=== PATIENT | male | born 1945 | race Caucasian/White ===

== ENCOUNTER 2022-10-01 08:45 | Outpatient (RCR) | payer OTHER, SELFPAY ==
--- NOTE | 2022-10-01 10:58 | HP.PTEVAL_ITS ---
Patient's Visit Information SRIKANTH ZAMORANO is a 77 year old M referred to Physical Therapy by Dr. Elías Hawley DO with a diagnosis of B knee OA. Date of Evaluation: 10/01/22 Physical Therapist: Didier Lovelace DPT - Visit Plan Frequency: 1x/Week Duration: 6 Weeks Plan: I gave Srikanth new LE strengthening and ROM exercises. He is to add this to his program. Pt. is to do so for a few weeks and come back to determine progression. - Subjective Pt. is here today for his initial evaluation with diagnosis of B knee OA. R worse than L. Pt. has had cortizone and gel injections with some mild relief. Pt. reports having increased stiffness and pain at times, but not all the time. Patient does go to a gym x2 days per week doing 4-5 machines. 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 He is able to sleep without much issue. Pt. denies N/T in either LE. He has started using voltarin gel with good tolerance. Pt. is able to walk without much issues, most of the time. He is hopeful to reduce symptoms in order to get back to all recreational activities without limitations. - Pain R knee Pain Intensity (Out of 10): 1 Pain Intensity Range: 0, 5 L knee Pain Intensity (Out of 10): 0 Pain Intensity Range: 0, 4 - Objective POSTURE: Pt. has marked genur varum on the R, and genu valgus on the L in stance. Worse in SLS. PALPAITON: Pt. has minimal to no tenderness to palpation of either LE. NEURO: Normal sensation and DTR of BLEs. ROM: R knee: AROM: 0-5-121deg. PROM: 0-2-125deg. L knee: AROM: 0-0-118deg. PROM: 0-0-121deg. Pt. has slight tightness in B HS but minimal and has some hip flexor tightness bilaterally as well. MMT: R knee: ext 45.5#, flexion 31.7#; L knee: ext 39.5#, flex 26.4#. Hip abd 16.7# on R, 14.9# on L. GAIT: pt. has increased respective genu valgum and varum during stance phase of gait, B decreased step length. No increase in pain with stance phase of gait. - Balance/Special Test Scores Lower Extremity Functional Score: 47 - Goals Goal 1:: LTG: Pt. to be I with HEP for gym. Goal Time Frame: 4-6 Weeks Goal 2:: LTG: pt. to be able to complete all ADLs and IADLs without increase in symptoms. Goal Time Frame: 4-6 Weeks Goal 3:: LTG: Pt. to have improved HS and hip flexor length to normal. Goal Time Frame: 4-6 Weeks Goal 4:: LTG: pt. to have increased BLE strength increased by 5# throughout BLEs. - Rehabilitation Potential Physical Therapy Diagnosis: Pt. has signs and symptoms consistent with B knee OA. Pt. has actually decent ROM and decent strength. He is active in at his gym and desires some more exercises and guidance for what he should be doing at the gym. Rehabilitation Potential: Excellent - Anticipated Interventions Patient/Client Instruction: Educate patient on: Condition, Plan of Care, Risk Factors, Benefits of Fitness Program For the Purpose of:: To foster healthy habits, To improve decision making, To facilitate caregiver knowledge, To improve self management, To prevent re- injury, To improve ability to perform tasks related to life management Therapeutic Exercise to Include: Strength training, Power training, Postural training, Flexibilty training, Passive ROM, Active ROM For the Purpose of:: To decrease pain, To increase ROM, To improve nutrient delivery to tissue, To increase oxygenation perfusion, To improve muscle performance and motor function, To improve health of tissue, To decrease soft tissue restriction, To increase flexibility/ROM Manual Therapy Techniques to Include: Mobilization, Passive ROM For the Purpose of:: To facilitate caregiver knowledge, To improve self management, To prevent re-injury, To improve ability to perform tasks related to life management Thank you for the opportunity to evaluate your patient. For Medicare and Medicare HMO plans, please review the plan of care and approve it. It will need to be FAXED BACK to us at [phone] for Medicare purposes. For Medicare only, by signing this I certify the plan of care. Please let me know if there are questions or concerns regarding this plan of care. Physician Signature: Date:
== END 2022-10-01 19:00 | disposition home or self-care (01) ==
LOC: PT 08:45
PROVIDERS: PCP Family Medicine; Referring Provider Orthopaedic Surgery; Visit Provider Orthopaedic Surgery
DX: M17.0 Bilateral primary osteoarthritis of knee (principal)
CPT/HCPCS: 97161

== ENCOUNTER → 2023-06-09 | Outpatient (CLI) | payer BC, SELFPAY ==
--- NOTE | 2023-06-09 14:50 | CT_ITS ---
CT RIGHT LOWER EXTREMITY WITH 3-D IMAGING CLINICAL INDICATION: BILATERAL POST TRAUMATIC OSTEOARTHRITIS OF KNEE TECHNIQUE: Axial CT images of the right lower extremity was performed without IV contrast material. Coronal and sagittal reformats were provided. RADIATION DOSAGE (If Supplied By Facility): CTDIvol = ( 20.10 ) mGy, DLP = ( 1415.75 ) mGycm COMPARISON: Right knee radiographs dated 07/11/2022. FINDINGS: Bones: There is mild degenerative arthrosis of the right hip joint with mild joint space narrowing and tiny marginal osteophyte formation. There is tricompartment degenerative arthrosis of the right knee with joint space narrowing and marginal osteophyte formation, most pronounced in the medial femorotibial compartment. There is severe degenerative arthrosis at the tibiotalar joint with severe joint space narrowing, marginal osteophyte formation, subchondral cyst, and adjacent osseous fragmentation. Osseous structures are intact without evidence of fracture or dislocation. No lytic or blastic osseous masses. Soft Tissues: There is mild chondrocalcinosis of the right acetabular labrum. There is mild chondrocalcinosis of the medial and lateral menisci of the right knee. There is a small right knee joint effusion. The deep soft tissue structures are unremarkable. The superficial soft tissues are unremarkable without evidence of edema, hematoma, or foreign body. CT/Extremity Lower without Contra IMPRESSION: Tricompartment degenerative arthrosis of the right knee, most pronounced in the medial femorotibial compartment. Small right knee joint effusion. Electronically Signed: Jeffery Tompkins MD at 8:59 EST ,
== END | disposition home or self-care (01) ==
LOC: CT 14:41
PROVIDERS: PCP Family Medicine; Referring Provider Orthopaedic Surgery; Visit Provider Orthopaedic Surgery
DX: M17.2 Bilateral post-traumatic osteoarthritis of knee (principal)
CPT/HCPCS: 73700

== ENCOUNTER → 2023-06-30 | Outpatient (CLI) | payer BC, SELFPAY ==
[2023-06-30 12:42] LABS: Absolute Lymphocyte Count 2.76 X10^3/uL (0.83-4.51); Absolute Neutrophil Count 5.7 X10^3/uL (2.0-7.7); Basophil# 0.09 X10^3/uL; Basophil% 0.9 % (0-1); Eosinophil# 0.24 X10^3/uL; Eosinophils% 2.5 % (0-5); Hematocrit 48.9 % (40-54); Hemoglobin 16.5 g/dL (13.0-16.5); Lymphocyte # 2.76 X10^3/ul (0.83-4.51); Lymphocyte % 28.5 % (19-41); Mean Corp Hgb Conc 33.7 g/dL (32-36); Mean Corpuscular Hgb 29.8 pg (27.0-32.0); Mean Corpuscular Volume 88.4 fL (80-94); Mean Platelet Vol. 11.5 fl (6.2-12.0); Monocyte# 0.86 X10^3/uL; Monocyte% 8.9 % (0-10); NRBC Flagged by Analyzer 0 % (0-5); Neutrophil # 5.67 X10^3/uL (2.7-7.7); Neutrophil % 58.4 % (47-70); Platelet Count 288 K/mm3 (150-450); RBC Distribution Width CV 13.6 % (11.6-14.6); RBC Distribution Width SD 44.2 fl (35.1-43.9); Red Blood Count 5.53 M/mm3 (4.6-6.2); White Blood Count 9.7 K/mm3 (4.4-11.0)
[2023-06-30 13:25] LABS: Albumin, Serum 3.3 g/dL (3.2-5.0); Anion Gap 10 (5-15); BUN 17 mg/dL (7-18); BUN/Creat Ratio 17.1 RATIO (10-20); Calcium,Total 9.6 mg/dL (8.5-10.1); Chloride 108 mmol/L (98-107); EST Glomerular Filtration Rate 77 mL/min (>60); Est Glom Filt Rate - Afr Amer 93 mL/min (>60); Glucose 95 mg/dL (74-106); Potassium 4.4 mmol/L (3.5-5.1); Sodium Level 140 mmol/L (136-145)
== END | disposition home or self-care (01) ==
PROVIDERS: PCP Family Medicine; Referring Provider Orthopaedic Surgery; Visit Provider Orthopaedic Surgery
DX: Z01.810 Encounter for preprocedural cardiovascular examination (principal); M17.2 Bilateral post-traumatic osteoarthritis of knee
CPT/HCPCS: 36415; 80048; 82040; 85025; 87641

== ENCOUNTER → 2023-07-17 | Outpatient (CLI) | payer BC, SELFPAY ==
--- NOTE | 2023-07-17 15:30 | RAD_ITS ---
EXAM: XR CHEST, 2 VIEWS CLINICAL INDICATION: pre op, high blood pressure TECHNIQUE: Frontal and lateral views of the chest. COMPARISON: No relevant prior studies available. FINDINGS: LUNGS AND PLEURAL SPACES: Unremarkable. No pneumothorax. No visible infiltrate or effusion. HEART: Unremarkable. Cardiac silhouette not enlarged. MEDIASTINUM: Mild peripheral calcification of the aorta arch. No mediastinal widening. BONES/JOINTS: Mild thoracic spondylosis. Mild apparent dextroscoliosis centered at the lower thoracic spine and lateral view. Minimal decreased midthoracic body heights. Straightening of the usual kyphotic curvature of the thoracic spine lateral view. SOFT TISSUES: Unremarkable. RAD/Chest PA and Lateral IMPRESSION: 1. Mild degenerative thoracic spine changes. 2. No acute intrathoracic abnormality. Electronically Signed: Bea Velásquez MD at 3:58 EDT ,
== END | disposition home or self-care (01) ==
PROVIDERS: PCP Family Medicine; Referring Provider Orthopaedic Surgery; Visit Provider Orthopaedic Surgery
DX: Z01.810 Encounter for preprocedural cardiovascular examination (principal); M17.2 Bilateral post-traumatic osteoarthritis of knee; M21.062 Valgus deformity, not elsewhere classified, left knee; M21.161 Varus deformity, not elsewhere classified, right knee; I10 Essential (primary) hypertension; R07.9 Chest pain, unspecified
CPT/HCPCS: 71046

== ENCOUNTER → 2023-07-25 | Outpatient (CLI) | payer BC, SELFPAY ==
--- NOTE | 2023-07-25 | KNEE_PTH ---
PATIENT: MILDRED ZAMORANO LOC: [facility] U#:[id number] AGE/SX: 78/M ROOM: RE07/25/[address]: Dr. Hilario Clay MD : 1945 BED: DIS: 07/25/2023 SPEC #: [id number] RECD: 07/25/23 15:09 STATUS: CLIFF REKarime #: [id number] JERRY: 07/25/23 00:[address]: Hilario Clay DEPT: SURGICAL PATHOLOGY RECD BY: Ed Hines ENTERED: 07/28/23 10:18 SP TYPE: TOTAL KNEE OTHR DR: Dr. Teja Escobedo MD [facility] Tissues: Knee, NOS Procedures: Decalcification bone/plaque Surgery Specimen Level IV HEADER OPERATION: Right total knee arthroplasty PRE-OP DIAGNOSIS: Right knee grade 4 primary osteoarthritis TISSUE SUBMITTED: Right knee MICROSCOPIC DIAGNOSIS Bone and soft tissue, right knee, total knee replacement/resection: Pieces of bone with degenerative osteoarthritic changes. Fibroadipose tissue, fibroconnective tissue and reactive synovial tissue. Focal changes consistent with pseudogout. DEBBY: 07/31/2023 MICROSCOPIC DESCRIPTION Slides are reviewed. GROSS DESCRIPTION Received is one container designated bone and soft tissue right knee. The specimen consists of multiple fragments of schneider-yellow bone measuring in aggregate 12.0 x 11.0 x 3.0 cm. A piece of soft tissue is noted measuring 5.0 x 4.0 x 1.5cm. Focal area of soft tissue shows chalky-white deposits. A number of bony fragments contain articular surfaces consistent with tibial plateau and femoral condyle and displaying prominent osteophyte formation, eburnation and bone erosion. Television Script Writer sections are submitted in two cassettes as follows: 1 - bone after decalcification, 2 - soft tissue. / DEBBY/ 07/28/23 TC:5 CPT: 61896, 87786
== END | disposition home or self-care (01) ==
LOC: LABSPEC 15:28
PROVIDERS: PCP Family Medicine; Referring Provider Orthopaedic Surgery; Visit Provider Orthopaedic Surgery
DX: M17.11 Unilateral primary osteoarthritis, right knee (principal)
CPT/HCPCS: 88305; 88311

== ENCOUNTER → 2025-03-17 | Outpatient (CLI) | payer BC, SELFPAY | END | disposition home or self-care (01) | LOC: MTLAB 14:01 | PROVIDERS: PCP Family Medicine; Referring Provider Physician Assistant; Visit Provider Physician Assistant | DX: R93.89 Abnormal findings on diagnostic imaging of other specified body structures (principal) | CPT/HCPCS: 36415; 82565 ==